=== PATIENT | male | born 1970 | race Two or more races ===

== ENCOUNTER 2021-07-15 17:07 | Inpatient (IN) | payer MEDICAID, OTHER ==
[~2021-07-15] VITALS: Ht 165.1 cm; Wt 116.0 kg
[2021-07-15 19:32] LABS: Basophils # (auto) 0.1 10 ^3/uL (0-0.2); Eosinophils # (auto) 0.3 10 ^3/uL (0-0.8); Eosinophils % (auto) 3.7 % (0.0-7.0); Hematocrit 34.8 % (41.0-53.0); Lymphocytes # (auto) 1.8 10 ^3/uL (0.4-5.4); Lymphocytes % (auto) 22.4 % (10.0-50.0); Mean Corpuscular Hemoglobin 29.5 pg (28.0-32.0); Mean Corpuscular Hgb Conc. 34.5 g/dL (32.0-36.0); Mean Corpuscular Volume 85.5 fL (80.0-100.0); Monocytes # (auto) 0.7 10 ^3/uL (0-1.3); Monocytes % (auto) 8.6 % (0.0-12.0); Neutrophils # (auto) 5.3 10 ^3/uL (1.6-8.6); Neutrophils % (auto) 64.3 % (37.0-80.0); Red Blood Cells 4.07 10^6/uL (4.5-5.90); Red Cell Distribution Width 14.3 % (11.8-14.3); White Blood Cell 8.3 10^3/uL (4.4-10.8)
[2021-07-15 19:54] LABS: Albumin 2.2 g/dL (3.4-5.0); BUN/Creatinine Ratio 17.1
[2021-07-15 19:57] LABS: Bilirubin, Total 0.1 mg/dL (0.2-1.0)
[2021-07-15 20:07] LABS: Urine Bacteria FEW /hpf (None Seen); Urine Blood Negative /uL (Negative); Urine Hyaline Cast FEW /lpf (0 - 2); Urine Specific Gravity 1.021 (1.001-1.035); Urine WBC 11 /hpf (0 - 3)
[2021-07-15] MEDS ORDERED: ASPirin 325 MG TAB PO ONE (20:15)
[2021-07-15] MEDS ORDERED: NITROGLYCERIN 0.4 MG SL TAB SL ONE (20:15)
[2021-07-15 20:21] LABS: Alcohol, Urine < 3.0 mg/dL (0-10); Amphetamine Screen, Urine POSITIVE (NEGATIVE); Barbiturate Scree,Urine NEGATIVE (NEGATIVE); Benzodiazephine Screen, Urine NEGATIVE (NEGATIVE); Cannabinoid Screen, Urine NEGATIVE (NEGATIVE); Cocaine Screen, Urine NEGATIVE (NEGATIVE); Opiate Scree,Urine NEGATIVE (NEGATIVE); Phencyclidine Screen, Urine NEGATIVE (NEGATIVE)
[2021-07-15] MEDS ORDERED: MORPHINE SULFATE INJ 2 MG/ml SYRG IV PRN (21:15)
[2021-07-15] MEDS ORDERED: ONDANSETRON HCL 4 MG/2 ML VIAL IV PRN (21:15)
[2021-07-15] MEDS ORDERED: DEXTROSE (50%) 50ML SYRG IV PRN (21:15)
[2021-07-15] MEDS ORDERED: NITROGLYCERIN 0.4 MG SL TAB SL PRN (21:15)
[2021-07-15] MEDS ORDERED: TEMAZEPAM 15 MG CAP PO PRN (21:15)
[2021-07-15] MEDS ORDERED: ACETAMINOPHEN 325 MG TAB PO PRN (21:15)
[2021-07-15] MEDS ORDERED: cefTRIAXone 1GM/50ML D5W 50 ML IV ONE (22:45)
[2021-07-15] MEDS: ATORVASTATIN 20 MG TAB PO SCH (23:00)
[2021-07-15] MEDS: ACCU-CHEK COMFORT CURVE STRIP VI SCH (23:00)
[2021-07-15] MEDS: CARVEDILOL 3.125 MG TAB PO SCH (23:01)
[2021-07-15] MEDS: InsuLIN REG 1unit/0.01ml Soln (100units/ml) SC SCH (23:02)
[2021-07-16] VITALS (7 sets, daily range): BP systolic 104–124; BP diastolic 40–68
[2021-07-16] MEDS ORDERED: ASPI-543 PO (01:50)
[2021-07-16] MEDS ORDERED: ACET-1156 PO (01:50)
[2021-07-16 05:32] LABS: Basophils # (auto) 0.1 10 ^3/uL (0-0.2); Basophils % (auto) 0.9 % (0.0-2.0); Eosinophils # (auto) 0.4 10 ^3/uL (0-0.8); Eosinophils % (auto) 4.8 % (0.0-7.0); Hematocrit 33.3 % (41.0-53.0); Hemoglobin 11.5 g/dL (13.5-17.5); Lymphocytes # (auto) 2.1 10 ^3/uL (0.4-5.4); Mean Corpuscular Hemoglobin 29.4 pg (28.0-32.0); Mean Corpuscular Hgb Conc. 34.4 g/dL (32.0-36.0); Mean Corpuscular Volume 85.4 fL (80.0-100.0); Monocytes # (auto) 0.9 10 ^3/uL (0-1.3); Monocytes % (auto) 11.1 % (0.0-12.0); Neutrophils # (auto) 4.4 10 ^3/uL (1.6-8.6); Neutrophils % (auto) 56.2 % (37.0-80.0); Nucleated Red Blood Cells % 0.1 %; Red Cell Distribution Width 14.5 % (11.8-14.3); White Blood Cell 7.8 10^3/uL (4.4-10.8)
[2021-07-16] MEDS: FUROSEMIDE 40 MG TAB PO SCH ×2 (05:37→18:10)
[2021-07-16] MEDS: InsuLIN REG 1unit/0.01ml Soln (100units/ml) SC SCH ×4 (05:54→22:00)
[2021-07-16] MEDS: ACCU-CHEK COMFORT CURVE STRIP VI SCH ×4 (05:54→22:00)
[2021-07-16 06:08] LABS: Albumin 2.2 g/dL (3.4-5.0); BUN/Creatinine Ratio 18.8; Bilirubin, Total 0.2 mg/dL (0.2-1.0); Calcium 7.8 mg/dL (8.5-10.1)
[2021-07-16] MEDS: ASPirin 81 mg TAB PO SCH (09:13)
[2021-07-16] MEDS: CARVEDILOL 3.125 MG TAB PO SCH ×2 (09:14→22:22)
[2021-07-16] MEDS: ISOSORBIDE MONONITRATE ER 60 MG TAB PO SCH (09:15)
[2021-07-16] MEDS: CLOPIDOGREL BISULFATE 75 MG TAB PO SCH (09:15)
[2021-07-16] MEDS: HYDROcodone-ACET 5/325MG TAB PO PRN ×3 (09:16→22:22)
[2021-07-16] MEDS: PANTOPRAZOLE 40 MG TAB PO SCH (09:16)
[2021-07-16 12:41] LABS: Cholesterol 144 mg/dL (< 200); HDL Cholesterol 35 mg/dL (40-59); LDL Cholesterol 95 mg/dL (< 100); Triglycerides 140 mg/dL (< 150)
[2021-07-16] MEDS ORDERED: cefTRIAXone 1GM/50ML D5W 50 ML IV SCH (22:00)
[2021-07-16] MEDS: ATORVASTATIN 20 MG TAB PO SCH (22:22)
[2021-07-17 05:00] VITALS: BP 121/57
[2021-07-17] MEDS: InsuLIN REG 1unit/0.01ml Soln (100units/ml) SC SCH (06:06)
[2021-07-17] MEDS: FUROSEMIDE 40 MG TAB PO SCH (06:06)
[2021-07-17] MEDS: ACCU-CHEK COMFORT CURVE STRIP VI SCH (06:07)
[2021-07-17 08:00] VITALS: BP 112/51
[2021-07-17] MEDS: CARVEDILOL 3.125 MG TAB PO SCH (09:22)
[2021-07-17] MEDS: ASPirin 81 mg TAB PO SCH (09:22)
[2021-07-17] MEDS: CLOPIDOGREL BISULFATE 75 MG TAB PO SCH (09:23)
[2021-07-17] MEDS: PANTOPRAZOLE 40 MG TAB PO SCH (09:23)
[2021-07-17] MEDS: ISOSORBIDE MONONITRATE ER 60 MG TAB PO SCH (09:23)
[2021-07-17] MEDS ORDERED: ASPI81CH49 PO (09:34)
[2021-07-17] MEDS ORDERED: METO25TA5 PO (09:34)
[2021-07-17] MEDS ORDERED: ATO40T PO (09:34)
[2021-07-17] MEDS ORDERED: LEVO500T31 PO (09:41)
[2021-07-17 10:27] VITALS: BP 115/67
== END 2021-07-17 12:00 | disposition home or self-care (01) | DRG 198 ==
LOC: ER 17:07 → EDBD 17:07 → TELE 21:12 → TELE-CENTR 23:49
PROVIDERS: ADMIT Nurse Practitioner; ATTEND Family Medicine
DX: I20.0 Unstable angina (principal); E11.21 Type 2 diabetes mellitus with diabetic nephropathy; I10 Essential (primary) hypertension; N39.0 Urinary tract infection, site not specified; F15.10 Other stimulant abuse, uncomplicated; E66.9 Obesity, unspecified; Z20.822 Contact with and (suspected) exposure to COVID-19; F17.200 Nicotine dependence, unspecified, uncomplicated; Z68.36 Body mass index [BMI] 36.0-36.9, adult; Z82.49 Family history of ischemic heart disease and other diseases of the circulatory system; Z83.3 Family history of diabetes mellitus; Z95.0 Presence of cardiac pacemaker; Z71.6 Tobacco abuse counseling
CPT/HCPCS: 36415; 70450; 71045; 80053; 80061; 80307; 80320; 81001; 82962; 83880; 84484; 85025; 93005; 93306; 94660; 96365; G0378; J0696; J1815